=== PATIENT | male | born 1950 | race Two or more races ===

== ENCOUNTER 2019-04-20 05:47 | Day surgery (SDC) | payer MEDICARE, MEDICAID ==
[2019-04-19 11:51] LABS: HEMATOCRIT 25.2 % (42.0-54.0); LYMPHOCYTES 47.8 % (15-50); MCHC 35.7 g/dL (31.0-37.0); MCV 81.3 fL (80.0-100.0); MEAN PLATELET VOLUME 8.5 fL (7.4-10.4); NEUTROPHILS 47.1 % (40-80); PLATELET COUNT 163 10x3/uL (130-400); RDW 13.1 % (11.5-14.5); WBC 7.7 10x3/uL (4.8-10.8)
[2019-04-19 12:00] LABS: ANION GAP 15.3 mmol/L (8-16); CALCIUM 7.6 mg/dL (8.5-10.1); CARBON DIOXIDE 24.6 mmol/L (21.0-32.0); CREATININE - SERUM 7.6 mg/dL (0.6-1.3); POTASSIUM - SERUM 3.9 mmol/L (3.5-5.1)
[2019-04-19 12:15] LABS: INR 1.08 (0.85-1.17); PROTIME 13.5 SECONDS (11.6-15.0)
[~2019-04-20] VITALS: Ht 152.4 cm; Wt 74.8 kg
[~2019-04-20 05:47] MED LIST: BUMETANIDE TAB 1MG PO; CELEXA20 MG PO; COZAAR100 MG PO; FERROUS SULFAT325 MG PO; HYDROCODON-ACE1 EA10 PO; HYTRIN5 MG PO; NORVASC5 MG PO; NOVOLIN 70/30 110 ML SC; OMEPRAZOLE20 M1; OMEPRAZOLE20 M1 PO; PRAVACHOL40 MG PO; SODIUM BICARBO650 MG PO; ZOFRAN ODT4 MG/UDTAB PO
[2019-04-20] MEDS ORDERED: ROCALTROL0.25 MCG PO (06:30)
[2019-04-20 06:47] VITALS: Ht 152.4 cm; Wt 74.8 kg
--- NOTE | 2019-04-20 11:10 | NUR ---
PATIENT AMBULATING AROUND ROOM WITHOUT UNSTEADINESS OR DIZZINESS. THIS NURSE ASSISTS PATIENT TO DRESS LEFT ARM IS NUMB. DC INSTRUCTIONS REVIEWED, RIGHT HAND PIV DC'D. [id number] ARRIVES TO TRANSPORT PATIENT HOME 1117 DISCHARGED HOME VIA WHEELCHAIR TO PRIVATE VEHICLE WITH [id number]
--- NOTE | 2019-04-23 15:54 | OP ---
PATIENT NAME: JOCELYN LEAL MEDICAL RECORD: [id number] :50 LOCATION:D.OPS ADMISSION DATE: SURGEON: TEMI MCCARTNEY MD DATE OF OPERATION: 04/20/2019 He as an outpatient. He is referred by Dr. Oneill. PREOPERATIVE DIAGNOSIS: CKD, 5. POSTOPERATIVE DIAGNOSIS: CKD, 5. OPERATION PERFORMED: Construction or creation of a left radiocephalic arteriovenous fistula. SURGEON: Temi Mccartney MD ANESTHESIA: Regional nerve block and TIVA per [employer]. PREOPERATIVE NOTE: This 68-year-old male has worsening renal insufficiency, he will need dialysis within the next few months and he was referred to me for dialysis access provision. He is brought to the OR at this time for creation of an AV fistula on the left arm. He is noted to have good veins preoperatively and I thank he will have radiocephalic fistula. Under anesthesia in supine position, the patient was prepped and draped in a sterile manner. A [place] drain was used as a proximal venous tourniquet and nitroglycerin paste was applied to the intact skin of the arm and forearm. The patient's veins indeed stood out quite nicely and he was a good candidate for radiocephalic fistula. A longitudinal incision was made in the radial artery exposed and controlled with Silastic loops and the cephalic vein adjacent to it was exposed and mobilized. The vein was distended and treated with topical papaverine. It was ligated distally and then transected and bevelled and flushed with heparinized saline and prepared for anastomosis. The artery was occluded and then an arteriotomy approximately 6 mm in length was made. The artery was flushed with heparinized saline proximally and distally and an end-to-side, end of vein to side of artery anastomosis carried out with running 7-0 Prolene. When completed and the occluding loops and clamps were released, excellent flow developed immediately within the fistula and the suture line was hemostatic. I then made 2 additional incisions through which I ligated 3 large collateral veins, which I thought were diverting an excessive amount of flow and I hope to channel the flow more into the single large vein to promote its maturation. Actually ligation division was done with Hemoclips and 3-0 Vicryl ties. These wounds were then all irrigated with Ancef/gentamicin solution and closed with interrupted inverted 3-0 Vicryl and running intracuticular 4-0 Monocryl. The incisions were sealed with Dermabond glue and dressed with Maxorb Ag, Tegaderm, and Cavilon skin prep. The patient was awakened and taken to the recovery room with good bruit and thrill and a warm pink hand. Persistent Doppler flow was noted within the palmar arch and distal ulnar artery. Flow was reversed in the distal radial artery. PLAN: The patient will go home later today and follow up with me in my office in about 2 weeks. He will leave the original operative dressing intact or he may remove it if it needs to be changed and he can dress the wound or his family can dress the wound with clean dry gauze. He has already a prescription at home for hydrocodone, which he takes for pain and he may take it as well 1-2 tablets OPERATIVE REPORT [id number] JOCELYN LEAL every 4-6 hours as needed p.r.n. for postoperative pain in the left arm. TRANSINT:[id number] Voice Confirmation ID: [id number] DOCUMENT ID: [id number] TEMI MCCARTNEY MD at 1554 CC: GOMEZ ONEILL DO [id number] DICTATION DATE: 04/20/19 1410 [facility] HOST/HOSTESS: 04/20/19 2210 [facility] 04/20/19 [place] [id number] [place] [address]
== END 2019-04-20 11:17 | disposition home or self-care (01) ==
LOC: D.OPS 05:47 → D.PAN 08:00 → D.OPS 08:00
PROVIDERS: Surgery; ATTEND Internal Medicine Nephrology
DX: N18.5 Chronic kidney disease, stage 5 (principal)

== ENCOUNTER → 2019-08-03 09:02 | Outpatient (CLI) | payer MEDICARE, MEDICAID ==
[2019-04-20 06:47] VITALS: BMI 32.2
[~2019-08-03 09:02] MED LIST changes: +ROCALTROL0.25 MCG PO
== END | disposition home or self-care (01) ==
LOC: D.NM 09:02
PROVIDERS: ATTEND Registered Nurse Nephrology
DX: R10.9 Unspecified abdominal pain (principal)